=== PATIENT | male | born 1950 | race Caucasian/White ===

== ENCOUNTER 2019-03-27 13:06 | Day surgery (SDC) | payer BC, OTHER ==
[~2019-03-27] VITALS: Ht 188 cm; Wt 108.5 kg
[~2019-03-27 13:06] MED LIST: ASPI325 PO; DASATINIB; METO50ER PO; NAPR500EC PO; SILD50TA PO; Tasigna200 MG PO; Toprol Xl25 MG PO
--- NOTE | 2019-03-27 14:53 | NUR ---
03/27/19 1453 Randi Del Cid (Caron PULSE RANGING FROM 52-[address] BEACH & DR. PURDY NOTIFIED. 12-LEAD EKG ORDERED. PT DENIES ANY SHORTNESS OF BREATH, CHEST DISCOMFORT OR DIZZINESS. PT STATES HE HAS NEVER BEEN SYMPTOMATIC DURING EPISODES OF AFIB, BUT CAN FEEL THE "FUNNY HEART BEATS." 12-LEAD EKG COMPLETED.
--- NOTE | 2019-03-27 15:14 | NUR ---
03/27/19 1514 Gary Barnhart LATE ENTRY FOR 1440. DR PURDY INFORMED OF PT TAKING 325MG ASPIRIN TODAY. DR PURDY OKAYED PROCEDING WITH PROCEDURE.
== END 2019-03-27 17:45 | disposition home or self-care (01) ==
LOC: ORSCSDS 13:06
PROVIDERS: Podiatrist
PROC: 0SGP04Z Fusion of Right Toe Phalangeal Joint with Internal Fixation Device, Open Approach (ICD-10-PCS; principal; 2019-03-27 14:30)
PROC: 0L8V0ZZ Division of Right Foot Tendon, Open Approach (ICD-10-PCS; principal; 2019-03-27 14:30)
PROC: 0QBN0ZZ Excision of Right Metatarsal, Open Approach (ICD-10-PCS; principal; 2019-03-27 14:30)
PROC: 0SNP0ZZ Release Right Toe Phalangeal Joint, Open Approach (ICD-10-PCS; principal; 2019-03-27 14:30)
PROC: 0QSN04Z Reposition Right Metatarsal with Internal Fixation Device, Open Approach (ICD-10-PCS; principal; 2019-03-27 14:30)
DX: M20.11 Hallux valgus (acquired), right foot (principal); M21.611 Bunion of right foot; M20.41 Other hammer toe(s) (acquired), right foot; I48.91 Unspecified atrial fibrillation; Z79.899 Other long term (current) drug therapy; Z79.82 Long term (current) use of aspirin
CPT/HCPCS: 82947; 93005; 93010; C1713; J0690; J1100; J1885; J2001; J2250; J2370; J2405; J2704; J3010; J7120

== ENCOUNTER 2019-05-10 18:02 | Emergency (ER) | payer BC, OTHER ==
[~2019-05-10] VITALS: Ht 188 cm; Wt 108.9 kg
== END 2019-05-10 19:58 | disposition home or self-care (01) ==
LOC: ER 18:02
DX: S42.021A Displaced fracture of shaft of right clavicle, initial encounter for closed fracture (principal); S00.81XA Abrasion of other part of head, initial encounter; Z88.8 Allergy status to other drugs, medicaments and biological substances; Z79.899 Other long term (current) drug therapy; Z79.82 Long term (current) use of aspirin; W01.10XA Fall on same level from slipping, tripping and stumbling with subsequent striking against unspecified object, initial encounter
CPT/HCPCS: 73030; 99283-25

== ENCOUNTER → 2021-04-13 | Outpatient (CLI) | payer OTHER ==
[2021-04-13 15:31] LABS: Anion Gap 7 mmol/L (6-16); Blood Urea Nitrogen 15 mg/dL (8-24); Bun/Creatinine Ratio 17.6 (12.0-20.0); CO2, Blood 26 mmol/L (21-32); Calcium, Blood 9.2 mg/dL (8.5-10.1); Chloride, Blood 103 mmol/L (98-108); Creatinine, Blood 0.85 mg/dL (0.60-1.20); Glomerular Filtration Rate >60 (60-); Glucose, Blood 167 mg/dL (70-99); Potassium, Blood 4.5 mmol/L (3.5-5.5); Sodium, Blood 136 mmol/L (136-145)
== END | disposition home or self-care (01) ==
LOC: LAB 09:58 → LAB SHORT 09:58
PROVIDERS: Hospitalist
DX: I10 Essential (primary) hypertension (principal)
CPT/HCPCS: 80048

== ENCOUNTER 2021-09-14 00:17 | Day surgery (SDC) | payer OTHER | END 2021-09-14 22:52 | disposition home or self-care (01) | LOC: WOUND 00:17 | DX: E11.51 Type 2 diabetes mellitus with diabetic peripheral angiopathy without gangrene (principal); I70.245 Atherosclerosis of native arteries of left leg with ulceration of other part of foot; T87.81 Dehiscence of amputation stump; E11.621 Type 2 diabetes mellitus with foot ulcer; E11.40 Type 2 diabetes mellitus with diabetic neuropathy, unspecified; Z87.39 Personal history of other diseases of the musculoskeletal system and connective tissue | CPT/HCPCS: A9270 ==

== ENCOUNTER 2021-09-21 01:43 | Day surgery (SDC) | payer OTHER | END 2021-09-21 23:24 | disposition home or self-care (01) | LOC: WOUND 01:43 | DX: E11.621 Type 2 diabetes mellitus with foot ulcer (principal); L97.522 Non-pressure chronic ulcer of other part of left foot with fat layer exposed; E11.51 Type 2 diabetes mellitus with diabetic peripheral angiopathy without gangrene; I70.245 Atherosclerosis of native arteries of left leg with ulceration of other part of foot; E11.40 Type 2 diabetes mellitus with diabetic neuropathy, unspecified; Z89.421 Acquired absence of other right toe(s) | CPT/HCPCS: G0463 ==

== ENCOUNTER 2021-10-05 00:57 | Day surgery (SDC) | payer OTHER | END 2021-10-05 23:21 | disposition home or self-care (01) | LOC: WOUND 00:57 | DX: E11.621 Type 2 diabetes mellitus with foot ulcer (principal); L97.522 Non-pressure chronic ulcer of other part of left foot with fat layer exposed; E11.40 Type 2 diabetes mellitus with diabetic neuropathy, unspecified; E11.51 Type 2 diabetes mellitus with diabetic peripheral angiopathy without gangrene; I70.245 Atherosclerosis of native arteries of left leg with ulceration of other part of foot; T87.81 Dehiscence of amputation stump; Z87.39 Personal history of other diseases of the musculoskeletal system and connective tissue | CPT/HCPCS: A9270 ==

== ENCOUNTER 2021-10-11 01:56 | Day surgery (SDC) | payer OTHER | END 2021-10-11 23:41 | disposition home or self-care (01) | LOC: WOUND 01:56 | DX: E11.621 Type 2 diabetes mellitus with foot ulcer (principal); L97.528 Non-pressure chronic ulcer of other part of left foot with other specified severity; E11.51 Type 2 diabetes mellitus with diabetic peripheral angiopathy without gangrene; I70.245 Atherosclerosis of native arteries of left leg with ulceration of other part of foot; T87.81 Dehiscence of amputation stump; E11.40 Type 2 diabetes mellitus with diabetic neuropathy, unspecified; Z87.39 Personal history of other diseases of the musculoskeletal system and connective tissue | CPT/HCPCS: A9270; G0463 ==

== ENCOUNTER 2021-10-18 02:15 | Day surgery (SDC) | payer OTHER | END 2021-10-18 23:01 | disposition home or self-care (01) | LOC: WOUND 02:15 | DX: E11.621 Type 2 diabetes mellitus with foot ulcer (principal); L97.522 Non-pressure chronic ulcer of other part of left foot with fat layer exposed; E11.40 Type 2 diabetes mellitus with diabetic neuropathy, unspecified; E11.51 Type 2 diabetes mellitus with diabetic peripheral angiopathy without gangrene; I70.248 Atherosclerosis of native arteries of left leg with ulceration of other part of lower leg | CPT/HCPCS: A9270; G0463 ==

== ENCOUNTER 2021-10-25 08:33 | Day surgery (SDC) | payer OTHER | END 2021-10-25 22:54 | disposition home or self-care (01) | LOC: WOUND 08:33 | DX: E11.621 Type 2 diabetes mellitus with foot ulcer (principal); L97.522 Non-pressure chronic ulcer of other part of left foot with fat layer exposed; E11.40 Type 2 diabetes mellitus with diabetic neuropathy, unspecified; E11.51 Type 2 diabetes mellitus with diabetic peripheral angiopathy without gangrene | CPT/HCPCS: A9270; G0463 ==